=== PATIENT | female | born 1965 | race African-American/Black ===

== ENCOUNTER 2019-04-11 22:33 | Inpatient (IN) ==
[2019-04-11] MEDS ORDERED: methylPREDNISolone 125 MG/2 ML VIAL IVP ONE (22:55)
[2019-04-11] MEDS ORDERED: Ipratropium/Albuterol Neb 3 ML IH ONE (22:55)
[2019-04-11] MEDS ORDERED: 0.9 % Sodium Chloride 1,000 ML IVC ONE (22:55)
[2019-04-11] MEDS ORDERED: Ketorolac 15 MG/ML VIAL IVP ONE (22:59)
[2019-04-11 23:27] LABS: Basophils % 0.2 %; Eosinophils # 0.1 K/mcL (0.0-0.6); Eosinophils % 2.8 %; Hematocrit 36.3 % (35.3-44.9); Hemoglobin 12.5 g/dL (11.5-15.4); Immature Granulocytes % 0.2 % (0-4); Lymphocytes # 0.9 K/mcL (0.6-4.6); Lymphocytes % 18.8 %; Mean Corpuscular HGB Conc 34.4 g/dL (31.6-35.5); Mean Corpuscular Hemoglobin 33.2 pg (28.0-33.3); Mean Corpuscular Volume 96.5 fL (83.0-100.0); Mean Platelet Volume 9.2 fL (9.4-12.4); Monocytes # 0.7 K/mcL (0.0-1.3); Monocytes % 13.7 %; Neutrophils # 3.2 K/mcL (1.6-8.9); Platelet Count 235 K/mcL (140-400); Red Blood Count 3.76 M/mcL (3.82-4.97); Red Cell Distribution Width 13.2 % (11.5-14.5); Segmented Neutrophils % 64.3 %
[2019-04-11 23:34] LABS: BUN/Creatinine Ratio 10 (6-26); Blood Urea Nitrogen 9 mg/dL (6-20); Calcium 9.2 mg/dL (8.6-10.3); Carbon Dioxide 22 mEq/L (23-29); Chloride 104 mEq/L (98-107); Glucose 100 mg/dL (70-105); Osmolality,Calculated 277 (280-300); Sodium 134 mEq/L (136-145); eGFR For African Americans > 60 (> 60); eGFR For Non-African Americans > 60 (> 60)
[2019-04-12] MEDS ORDERED: Azithromycin 500 MG in 0.9 % Sodium Chloride 250 ML IVPB SCH (02:00)
[2019-04-12] MEDS ORDERED: Naloxone 0.4 MG/ML INJ IVP PRN (02:09)
[2019-04-12] MEDS ORDERED: 0.9 % Sodium Chloride 250 ML ONE (02:41)
[2019-04-12] MEDS ORDERED: Ondansetron ODT 4 MG TAB.RAPDIS SL PRN (03:23)
[2019-04-12] MEDS ORDERED: Ibuprofen 600 MG TABLET PO PRN (03:24)
[2019-04-12] MEDS ORDERED: *HR* Promethazine 25 MG/ML VIAL IVP PRN (03:32)
[2019-04-12] MEDS ORDERED: Azithromycin 500 MG in 0.9 % Sodium Chloride 250 ML IVPB ONE (03:37)
[2019-04-12] MEDS: Ipratropium/Albuterol Neb 3 ML IH SCH ×4 (04:16→22:06)
[2019-04-12 05:02] LABS: Hematocrit 34.8 % (35.3-44.9); Hemoglobin 11.7 g/dL (11.5-15.4); Mean Corpuscular HGB Conc 33.6 g/dL (31.6-35.5); Mean Platelet Volume 9.6 fL (9.4-12.4); Platelet Count 228 K/mcL (140-400); Red Blood Count 3.55 M/mcL (3.82-4.97); White Blood Count 4.2 K/mcL (4.3-11.1)
[2019-04-12 05:23] LABS: BUN/Creatinine Ratio 11 (6-26); Blood Urea Nitrogen 11 mg/dL (6-20); Calcium 8.7 mg/dL (8.6-10.3); Carbon Dioxide 20 mEq/L (23-29); Chloride 104 mEq/L (98-107); Glucose 199 mg/dL (70-105); Osmolality,Calculated 289 (280-300); Potassium 3.5 mEq/L (3.5-5.1); Sodium 137 mEq/L (136-145); eGFR For African Americans > 60 (> 60); eGFR For Non-African Americans 56 (> 60)
[2019-04-12] MEDS: MethylPREDNISolone 40 MG/ML VIAL IVP SCH ×4 (05:23→23:32)
[2019-04-12] MEDS: *HR* Enoxaparin 40 MG/0.4 ML SYRINGE SQ SCH (05:23)
[2019-04-12 07:45] LABS: Adenovirus Not Detected (Not Detect); Coronavirus 229E Not Detected (Not Detect); Coronavirus HKU1 Not Detected (Not Detect); Coronavirus NL63 Not Detected (Not Detect); Coronavirus OC43 Not Detected (Not Detect); Human Metapneumovirus Not Detected (Not Detect); Human Rhinovirus/Enterovirus Not Detected (Not Detect); Influenza A Subtype 2009 H1 Not Detected (Not Detect)
[2019-04-12 07:46] LABS: Bordetella Pertussis Not Detected (Not Detect); Chlamydophila pneumoniae Not Detected (Not Detect); Mycoplasma pneumoniae Not Detected (Not Detect); Parainfluenza Virus 1 Not Detected (Not Detect); Parainfluenza Virus 2 Not Detected (Not Detect); Parainfluenza Virus 3 Not Detected (Not Detect); Parainfluenza Virus 4 Not Detected (Not Detect); Respiratory Syncytial Virus Not Detected (Not Detect)
[2019-04-12 07:49] LABS: Influenza B DETECTED (Not Detect)
[2019-04-12] MEDS ORDERED: 0.9 % Sodium Chloride 1,000 ML IVC SCH (08:30)
[2019-04-12] MEDS: OLANZapine 10 MG TAB.RAPDIS PO SCH (08:41)
[2019-04-12] MEDS: Loratadine 10 MG TABLET PO SCH (08:41)
[2019-04-12] MEDS: ARIPiprazole 5 MG TABLET PO SCH (08:41)
[2019-04-12] MEDS: [UNRECOGNIZED DRUG - OTHER] PO SCH ×2 (08:42→11:48)
[2019-04-12] MEDS: Nicotine 7 MG PATCH.TD24 TD SCH (08:42)
[2019-04-12] MEDS ORDERED: Azithromycin 250 MG TABLET PO SCH (09:00)
[2019-04-12] MEDS: Budesonide/Formoterol 160/4.5 1 PUFF INH IH SCH ×2 (10:14→22:07)
[2019-04-12] MEDS: Naltrexone HCl 50 MG TABLET PO SCH (11:01)
[2019-04-13] MEDS: Ipratropium/Albuterol Neb 3 ML IH SCH ×4 (04:00→22:23)
[2019-04-13] MEDS: *HR* Enoxaparin 40 MG/0.4 ML SYRINGE SQ SCH (05:25)
[2019-04-13] MEDS: MethylPREDNISolone 40 MG/ML VIAL IVP SCH ×2 (05:25→12:24)
[2019-04-13 09:04] LABS: Hematocrit 35.1 % (35.3-44.9); Hemoglobin 12.1 g/dL (11.5-15.4); Mean Corpuscular HGB Conc 34.5 g/dL (31.6-35.5); Mean Corpuscular Hemoglobin 33.8 pg (28.0-33.3); Mean Platelet Volume 9.7 fL (9.4-12.4); Platelet Count 247 K/mcL (140-400); Red Blood Count 3.58 M/mcL (3.82-4.97); Red Cell Distribution Width 13.2 % (11.5-14.5); White Blood Count 8.5 K/mcL (4.3-11.1)
[2019-04-13] MEDS: Azithromycin 250 MG TABLET PO SCH (09:44)
[2019-04-13] MEDS: OLANZapine 10 MG TAB.RAPDIS PO SCH (09:44)
[2019-04-13] MEDS: ARIPiprazole 5 MG TABLET PO SCH (09:44)
[2019-04-13] MEDS: Nicotine 7 MG PATCH.TD24 TD SCH (09:44)
[2019-04-13] MEDS: Loratadine 10 MG TABLET PO SCH (09:44)
[2019-04-13] MEDS: [UNRECOGNIZED DRUG - OTHER] PO SCH (09:45)
[2019-04-13] MEDS: Budesonide/Formoterol 160/4.5 1 PUFF INH IH SCH ×2 (10:41→22:22)
[2019-04-13] MEDS: Naltrexone HCl 50 MG TABLET PO SCH (12:24)
[2019-04-13] MEDS ORDERED: Menthol 9.1 MG LOZENGE PO PRN (13:14)
[2019-04-14] MEDS: Ipratropium/Albuterol Neb 3 ML IH SCH ×2 (03:58→11:05)
[2019-04-14] MEDS: *HR* Enoxaparin 40 MG/0.4 ML SYRINGE SQ SCH (05:26)
[2019-04-14 06:57] VITALS: BP 130/83
[2019-04-14 07:51] LABS: Hematocrit 35.4 % (35.3-44.9); Hemoglobin 11.6 g/dL (11.5-15.4); Mean Corpuscular HGB Conc 32.8 g/dL (31.6-35.5); Mean Corpuscular Hemoglobin 32.7 pg (28.0-33.3); Mean Corpuscular Volume 99.7 fL (83.0-100.0); Mean Platelet Volume 9.4 fL (9.4-12.4); Platelet Count 255 K/mcL (140-400); Red Blood Count 3.55 M/mcL (3.82-4.97); Red Cell Distribution Width 13.2 % (11.5-14.5); White Blood Count 8.8 K/mcL (4.3-11.1)
[2019-04-14 08:11] LABS: BUN/Creatinine Ratio 18 (6-26); Blood Urea Nitrogen 13 mg/dL (6-20); Calcium 8.7 mg/dL (8.6-10.3); Carbon Dioxide 27 mEq/L (23-29); Chloride 105 mEq/L (98-107); Glucose 120 mg/dL (70-105); Osmolality,Calculated 295 (280-300); Potassium 3.9 mEq/L (3.5-5.1); Sodium 142 mEq/L (136-145); eGFR For African Americans > 60 (> 60); eGFR For Non-African Americans > 60 (> 60)
[2019-04-14] MEDS ORDERED: predniSONE 20 MG TABLET PO SCH (09:00)
[2019-04-14] MEDS: Nicotine 7 MG PATCH.TD24 TD SCH (10:02)
[2019-04-14] MEDS: ARIPiprazole 5 MG TABLET PO SCH (10:02)
[2019-04-14] MEDS: [UNRECOGNIZED DRUG - OTHER] PO SCH (10:02)
[2019-04-14] MEDS: Loratadine 10 MG TABLET PO SCH (10:03)
[2019-04-14] MEDS: Naltrexone HCl 50 MG TABLET PO SCH (10:03)
[2019-04-14] MEDS: OLANZapine 10 MG TAB.RAPDIS PO SCH (10:03)
[2019-04-14] MEDS: Azithromycin 250 MG TABLET PO SCH (10:03)
[2019-04-14] MEDS: Budesonide/Formoterol 160/4.5 1 PUFF INH IH SCH (11:05)
== END 2019-04-14 13:18 | disposition home or self-care (01) | DRG 720 ==
LOC: EMEROOARM 22:33 → 3BNU 22:33
PROVIDERS: ADMIT Internal Medicine; ATTEND Internal Medicine